=== PATIENT | male | born 1955 | race Caucasian/White ===

== ENCOUNTER 2017-11-28 11:10 | Day surgery (SDC) | payer OTHER ==
[~2017-11-28] VITALS: Ht 195.6 cm; Wt 129.5 kg
[2017-11-28] MEDS ORDERED: SERT100T5 PO (12:29)
[2017-11-28] MEDS ORDERED: LISI-167 PO (12:29)
[2017-11-28] MEDS ORDERED: ETOMIDATE 20 MG/10 ML ONE (12:59)
[2017-11-28] MEDS ORDERED: SODIUM CHLORIDE FLUSH 10ML SYR IVF ONE (13:00)
[2017-11-28] MEDS ORDERED: ETOMIDATE 40 MG/20 ML IVPush ONE (13:00)
[2017-11-28] MEDS ORDERED: ETOMIDATE 20 MG/10 ML IVPush ONE (13:00)
[2017-11-28 14:43] VITALS: BP 161/95
[2017-11-28] MEDS ORDERED: SUCCINYLCHOLINE 20 MG/ML, 10ML ONE (14:44)
[2017-11-28] MEDS ORDERED: PROPOFOL 10 MG/ML, 20ML ONE (14:44)
[2017-11-28] MEDS ORDERED: FENTANYL PF 100 MCG/2ML IV PRN (15:30)
[2017-11-28] MEDS ORDERED: HYDROcodone/APAP 5/325 TABLET PO PRN (15:30)
[2017-11-28] MEDS ORDERED: METOCLOPRAMIDE 5 MG/ML, 2ML IV PRN (15:30)
[2017-11-28] MEDS ORDERED: PROMETHAZINE 25 MG/ML, 1ML IM PRN (15:30)
[2017-11-28] MEDS ORDERED: LABETALOL 5MG/ML, 20ML IV PRN (15:30)
[2017-11-28] MEDS ORDERED: hydrALAzine 20 MG/ML, 1ML IV PRN (15:30)
[2017-11-28] MEDS ORDERED: morphine SULFATE 10 MG/ML, 1ML IVPush PRN (15:30)
[2017-11-28] MEDS ORDERED: ACETAMINOPHEN 325 MG TABLET PO PRN ×2 (15:30)
[2017-11-28] MEDS ORDERED: ONDANSETRON 2MG/ML, 2ML IVPush PRN ×2 (15:30)
[2017-11-28] MEDS ORDERED: HYDROmorphone 1 MG/ML, 1ML IV PRN (15:30)
[2017-11-28] MEDS ORDERED: OXYcodone 5 MG/5 ML ORAL.SOL UDC PO PRN (15:30)
== END 2017-11-28 17:15 | disposition home or self-care (01) ==
LOC: ED 13:51 → UNDOADMIN 13:52 → EDIP 13:52 → UNDOADMOB 13:52 → ED 14:24 → UNDODISOB 14:29 → OR 15:16 → ED 19:00
PROVIDERS: ATTEND Orthopaedic Surgery
DX: T84.022A Instability of internal right knee prosthesis, initial encounter (principal); Y83.8 Other surgical procedures as the cause of abnormal reaction of the patient, or of later complication, without mention of misadventure at the time of the procedure; Y92.89 Other specified places as the place of occurrence of the external cause; F41.9 Anxiety disorder, unspecified; I10 Essential (primary) hypertension
CPT/HCPCS: 27550; 71045; 73560; 73564; 76000; 93005; 93922; J0330; J2704